=== PATIENT | female | born 1935 | race Caucasian/White ===

== ENCOUNTER 2017-06-03 18:10 | Emergency (ER) | payer OTHER ==
[~2017-06-03] VITALS: Ht 160 cm; Wt 93.8 kg
[~2017-06-03 18:10] MED LIST: Aspirin E.C. PO; KEFLEX250 MG PO; Lopressor PO; Xarelto PO; Zestril,Prinivil PO
[2017-06-03 21:31] LABS: HEMATOCRIT 47.6 % (36.0-46.0); MCH 32.1 PG (29.0-34.0); MCHC 33.4 G/DL (30.0-36.0); MEAN PLAT.VOLUME 11.6 uM^3 (9.5-12.4); PLATELET COUNT 181 K/uL (156-360); RBC DIS.WIDTH-CV 12.3 % (11.8-14.6); RBC DIS.WIDTH-SD 43.4 % (39-53); RED BLOOD COUNT 4.96 M/uL (3.80-5.20); WHITE BLOOD COUNT 8.9 K/uL (4.1-10.2)
[2017-06-03 21:43] LABS: CHLORIDE 106 mEq/L (99-109); SODIUM 141 mEq/L (136-147)
[2017-06-03 21:44] LABS: GLUCOSE 124 mg/dL (70-99)
[2017-06-03 21:46] LABS: ANION GAP 10 MEQ/L (2-14)
[2017-06-03 21:48] LABS: GFR ESTIMATE (CALCULATED) > 59 mL/min/
[2017-06-03 21:49] LABS: UREA NITROGEN (BUN) 16 mg/dL (9-23)
[2017-06-03 22:35] VITALS: BP 204/107
== END 2017-06-03 22:38 | disposition home or self-care (01) ==
LOC: EME 18:10
PROVIDERS: Emergency Medicine
DX: R04.0 Epistaxis (principal); I10 Essential (primary) hypertension; Z79.82 Long term (current) use of aspirin; Z79.01 Long term (current) use of anticoagulants; E11.9 Type 2 diabetes mellitus without complications; E78.5 Hyperlipidemia, unspecified
CPT/HCPCS: 80048; 85027; 99281; 99285